=== PATIENT | male | born 2000 | race Caucasian/White ===

== ENCOUNTER → 2020-07-29 14:23 | Outpatient (BNVA) | payer MEDICAID, SELFPAY | PROVIDERS: PCP Internal Medicine Cardiovascular Disease; Referring Provider Internal Medicine Cardiovascular Disease; Visit Provider Physician Assistant | DX: E66.9 Obesity, unspecified (principal); Z68.30 Body mass index [BMI] 30.0-30.9, adult | CPT/HCPCS: 99202 ==

== ENCOUNTER 2020-10-17 05:27 | Emergency (ER) | payer MEDICAID, SELFPAY ==
[2020-10-17 05:49] VITALS: BP 128/80; PULSE 103; RESP 20; TEMP 37.6; O2SAT 97; BMI 30.4
[2020-10-17] MEDS: Acetaminophen 325 MG TABLET 975 MG PO (06:18)
[2020-10-17] MEDS: Ibuprofen 400 MG TABLET PO (06:18)
--- NOTE | 2020-10-17 06:43 | ED.GENADULT ---
HPI - General Adult General Chief complaint: Upper Respiratory Symptoms Stated complaint: Multiple complaints Time Seen by Provider: 10/17/20 06:01 Source: patient Mode of arrival: ambulatory History of Present Illness HPI narrative: This is a 20-year-old male without significant past medical history who presents with onset of sore throat, mild dry cough, mild nausea without vomiting, headache, but denies any body aches. He states that all of these symptoms started yesterday but denies any recent travel or known exposures to others with COVID-19 positivity. Related Data Home Medications Medication Instructions Recorded Confirmed No Known Home Meds 10/17/20 10/17/20 Allergies Allergy/AdvReac Type Severity Reaction Status Date / Time No Known Allergies Allergy Verified 10/17/20 05:28 [No Known Allergies*] Review of Systems Review of Systems: Pertinent positives and negatives as stated in HPI 10 point review of systems is otherwise negative. PMFSH Past Medical History Source: nursing notes reviewed Medical History BMI 30.0-30.9,adult Obesity (BMI 30-39.9) Family History Family History Mother Hypertension Arthritis Father Diabetes mellitus Sister No problems noted. Sister Hypertension Brother No problems noted. Social History Social History Alcohol intake: never Smoking Status: Never smoker Substance Use Type: Marijuana Advance Directives: No Physical Exam Vital Signs: Vital Signs: Last Vital Signs Temp 99.6 F 10/17/20 05:49 Pulse 103 H 10/17/20 05:49 Resp 20 10/17/20 05:49 BP 128/80 10/17/20 05:49 Pulse Ox 97 10/17/20 05:49 Body Mass Index 30.4 VITAL SIGNS: Reviewed. GENERAL: Well developed, well nourished, in no acute distress. HEAD: Normocephalic/atraumatic, EYES: PERRLA, EOMI EARS: Ext canals without abnormality, TMs non-bulging and non-erythematous NOSE: Nares patent bilateral OROPHARYNX: no oral lesions noted, posterior pharynx clear and non-erythematous without noted tonsillar enlargement/erythema/exudates NECK: Supple, no adenopathy LUNGS: Normal breath sounds. No adventitious sounds or accessory muscle use. SpO2<97> CARDIOVASCULAR: Regular rate and rhythm without noted murmurs ABDOMEN: Soft, non-tender, non-distended with bowel sounds. MUSCULOSKELETAL: No tenderness, deformities, or effusions noted on gross inspection. EXTREMITIES: No cyanosis, clubbing or edema. SKIN: Inspection of the skin reveals no rashes NEUROLOGIC: Alert and oriented x 4. Course Course Course Narrative: This is a 20-year-old male with history and clinical presentation consistent viral syndrome. Will rule out the possibility strep pharyngitis as well as COVID-19. On review of all investigations patient's rapid strep is negative, however he is COVID-19 positive. All results and findings were discussed with him and he is aware that he will need to self quarantine and take extra precautions around elderly as well as those with medical conditions. Medical Decision Making Lab Data Labs: Lab Results 10/17/20 Range/Units 06:14 Coronavirus (PCR) POSITIVE A (Negative) Influenza Type A (PCR) NEGATIVE (Negative) Influenza Type B (PCR) NEGATIVE (Negative) RSV RNA Qual (PCR) NEGATIVE (Negative) Discharge Plan Discharge Clinical Impression: Lab test positive for detection of COVID-19 virus Patient Disposition: Home, Self-Care Instructions: COVID-19 (Coronavirus Disease 2019) (ED) Additional Instructions: 1. You must remain self quarantine as per the [facility] guidelines. 2. Tylenol 1000 mg, orally, every 6 hours as needed for temperatures greater than 100.4, body aches. Do not exceed 4000 mg within 24 hours. 3. Ibuprofen 400 mg, orally with milk or food, every 6 hours as needed for temperatures greater than 100.4, body aches. You may take this with a Tylenol for increased symptom control. 4. Please do not hesitate to return to the emergency department should you develop significant worsening in your ability to breathe. Prescriptions: No Action No Known Home Meds RF: 0
[2020-10-17 07:03] LABS: Influenza A PCR NEGATIVE (Negative); Influenza B PCR NEGATIVE (Negative); Resp Syncy Virus RNA Qual PCR NEGATIVE (Negative); SARS COV2 PCR INHOUSE POSITIVE (Negative)
== END 2020-10-17 07:39 | disposition home or self-care (01) ==
PROVIDERS: Emergency Provider Student in an Organized Health Care Education/Training Program
DX: U07.1 COVID-19 (principal)
CPT/HCPCS: 0241U; 36415; 87071; 87880; 99283